=== PATIENT | female | born 1970 | race Caucasian/White ===

== ENCOUNTER 2018-10-30 14:25 | Day surgery (SDC) | payer BC, MEDICAID ==
[2018-10-29 15:06] VITALS: Ht 152.4 cm; Wt 69.0 kg
[~2018-10-30] VITALS: Ht 152.4 cm; Wt 69.0 kg
[2018-10-30] VITALS (18 sets, daily range): BP systolic 114–130; BP diastolic 55–71; PULSE 76–88; RESP 15–25
--- NOTE | 2018-10-30 15:12 | HPN ---
Date/Time of Note Date/Time of Note DATE: 10/30/18 TIME: 15:12 Interval H&P Admission Note Pt. seen H&P reviewed: No system changes FELTON ABRAMS Oct 30, 2018 15:12
--- NOTE | 2018-10-30 15:24 | PREAC ---
Date/Time of Note Date/Time of Note DATE: 10/30/18 TIME: 15:23 Anesthesia Eval and Record Evaluation Time Pre-Procedure Interview DATE: 10/30/18 TIME: 15:23 Age 48 Sex female NPO: 8 hrs Preoperative diagnosis Right index finger mass Planned procedure Excision of mass Past Medical History Past Medical History: Includes Cardio: Dyslipidemia Endo: Diabetes GI: Obesity Surgery & Anesthesia Issues No known issue Meds Anticoagulation: No Beta Loi within 24 hr: No Reason Beta Loi not given: Pt. not on B-Loi Reported Medications Atorvastatin* (Atorvastatin*) 40 Mg Tablet, 40 MG PO QHS, #30 TAB 10/30/18 Metformin* (Glucophage*) 500 Mg Tab, 500 MG PO WITH BREAKFAST DINNE, #30 TAB 10/30/18 Meds reviewed: Yes Allergies Allergies Reviewed: Yes Labs/Studies Labs Reviewed: Reviewed by anesthesiologist test: Negative Pre-procedure Exam Airway: Adequate mouth opening Mallampati: Mallampati II Teeth: Normal Lung: Normal Heart: Normal ASA Physical Status ASA physical status: 2 Emergency: None Planned Anesthetic General/MAC: LMA, MAC Planned Pain Management Parenteral pain med Pre-operative Attestations Prior to commencing anesthesia and surgery, the patient was re-evaluated, there was verification of: *The patient's identity *The results of appropriate recent lab work and preoperative vital signs *The above evaluation not changing prior to induction *Anesthetic plan, risk benefits, alternative and complications discussed with patient/family; questions answered; patient/family understands, accepts and wishes to proceed. NORMA KNIGHT MD Oct 30, 2018 15:24
[2018-10-30] MEDS ORDERED: BUPIVACAINE 0.5% (SDV) 30 ML INJ ONE (15:25)
[2018-10-30] MEDS ORDERED: ATOR40TA68 PO (15:38)
[2018-10-30] MEDS ORDERED: METF-849 PO (15:38)
[2018-10-30] MEDS ORDERED: PROPOFOL 20 ML ONE (15:52)
[2018-10-30] MEDS ORDERED: FENTAnyl 50 MCG/ML VIAL ONE (15:53)
[2018-10-30] MEDS ORDERED: MIDAZOLAM 1 MG/ML 2 ML INJ ONE (15:53)
[2018-10-30] MEDS ORDERED: LIDOCAINE 1% (MPF) 30 ML INJ ONE (16:00)
[2018-10-30] MEDS ORDERED: CEFAZOLIN 1 GM INJ ONE (16:14)
--- NOTE | 2018-10-30 16:23 | OPPN ---
Date/Time of Note Date/Time of Note DATE: 10/30/18 TIME: 16:21 Operative Report Preoperative Diagnosis Right index finger dorsal mass 1.5cm x 1.5cm Postoperative Diagnosis Right index finger dorsal mass 1.5cm x 1.5cm soft tissue defect 1.5 cm Operation/Procedure Performed Right index finger dorsal mass 1.5cm x 1.5cm Right index finger rhomboid rotational flap for coverage of 1.5 cm defect Surgeon see signature line assistant controller none Anesthesia: MAC Estimated blood loss: 0 - 10 ml's Transfusion Required none Specimen right index finger mass, deep, vascular Grafts/Implants none Complications none FELTON ABRAMS Oct 30, 2018 16:23
[2018-10-30] MEDS ORDERED: DIPHENHYDRAMINE 50 MG INJ IV PRN (16:30)
[2018-10-30] MEDS ORDERED: CEFAZOLIN 2 GM/50 ML (PMX) 50 ML IVPB SCH (16:30)
[2018-10-30] MEDS ORDERED: MEPERIDINE 25 MG INJ IV PRN (16:30)
[2018-10-30] MEDS ORDERED: FENTAnyl 50 MCG/ML VIAL IV PRN ×3 (16:30)
[2018-10-30] MEDS ORDERED: EPHEDrine SULFATE 50 MG/5 ML SYG IV PRN (16:30)
[2018-10-30] MEDS ORDERED: METOCLOPRAMIDE 10 MG INJ IV PRN (16:30)
[2018-10-30] MEDS ORDERED: hydrALAzine 20 MG INJ IV PRN (16:30)
[2018-10-30] MEDS ORDERED: ONDANSETRON 4 MG INJ IV PRN (16:30)
[2018-10-30] MEDS ORDERED: MIDAZOLAM 1 MG/ML 2 ML INJ IV PRN (16:30)
[2018-10-30] MEDS ORDERED: LACTATED RINGER'S 1,000 ML IV* SCH (16:30)
[2018-10-30] MEDS ORDERED: OXYCODONE/ACETAMINOPHEN (5/325) TAB PO PRN ×2 (16:30)
[2018-10-30] MEDS ORDERED: LABETALOL HCL 20MG INJ IV PRN (16:30)
--- NOTE | 2018-10-30 17:37 | PAC ---
Date/Time of Note Date/Time of Note DATE: 10/30/18 TIME: 17:35 Post-Anesthesia Notes Post-Anesthesia Note Last documented vital signs Vital Signs Date Temp Pulse Resp B/P (MAP) Pulse Ox O2 O2 Flow FiO2 Time Delivery Rate 10/30/18 98.8 16:29 10/30/18 84 114/61 99 Room Air 16:23 (78) 10/30/18 16 15:34 Activity: WNL Respiratory function: WNL Cardiovascular function: WNL Mental status: Baseline Pain reasonably controlled: Yes Hydration appropriate: Yes Nausea/Vomiting absent: Yes Comments BP: 116/63; HR: 85, RR: 99, PULSE OX: 99, TEMP: 98.8 NORMA KNIGHT MD Oct 30, 2018 17:37
--- NOTE | 2018-10-30 19:20 | OPR ---
DATE OF OPERATION: 10/30/2018 SURGEON: Jose Foreman MD ANESTHESIA: General plus local. PREOPERATIVE DIAGNOSIS: Right index finger dorsal mass measuring 1.5 cm x 1.5 cm. POSTOPERATIVE DIAGNOSES: 1. Right index finger dorsal mass measuring 1.5 cm x 1.5 cm. 2. Soft tissue defect measuring 1.5 cm x 1 cm at the dorsal index finger, DIPJ. PROCEDURES: 1. Excision of the deep mass right dorsal index finger measuring 1.5 cm x 1.5 cm. 2. Rotational rhomboid flap measuring 1.5 cm x 1 cm at the dorsal right index finger for coverage of soft tissue defect. OPERATIVE FINDINGS: Right dorsal index finger mass, vascular in nature, 1.5 cm x 1.5 cm. INDICATION FOR PROCEDURE: A 48-year-old female with longstanding mass at the dorsal right index finger. It continued to grow in size and the patient elected to proceed with surgical intervention, understanding risks and benefits. DESCRIPTION OF PROCEDURE: The patient was seen in the preoperative area and all further questions were answered. Again, she gave informed consent understanding risks and benefits. She was taken to the operative suite, placed in supine position. She was placed under general anesthesia and 2 grams Ancef IV were given. Tourniquet was placed in the right upper extremity and right upper extremity was prepped with ChloraPrep stick and draped in usual sterile fashion. Esmarch bandage was used to exsanguinate the extremity and tourniquet was inflated to 250 mmHg. Attention was first turned to excision of the mass and an ellipse type incision surrounding the index finger mass was utilized with sharp dissection carried down through skin and subcutaneous tissue. The mass was dissected down to the terminal extensor tendon which was protected. The mass was completely excised with a portion of the epidermis and dermis. The mass was sent for specimen. The wound was copiously irrigated and attention was then turned to coverage of the defect site. The defect site measured 1.5 cm x 1 cm and I was unable to primarily close. Decision was made to proceed with a rotational rhomboid flap at the dorsal index finger. A rhomboid flap was fashioned and a 15-blade knife was used to mobilize the flap along with a tenotomy scissor. The flap was advanced into the defect site and was sutured in place using 5-0 nylon suture. The harvest site was also sutured using 5-0 nylon suture. Xeroform was placed over the wound followed by sterile gauze, Webril and Coban dressing. Tourniquet was deflated after a total of 11 minutes. The patient was awakened from anesthesia. She was taken to postoperative suite in stable condition, tolerated procedure well without complication. SPECIMENS: Right dorsal index finger mass. ESTIMATED BLOOD LOSS: 5 mL. COUNTS: Sponge, instrument and needle counts were correct. TOURNIQUET TIME: 11 minutes. CONDITION ON DISCHARGE: Stable. The patient was given a nonrefillable 5-day prescription for pain medication for surgery today. Dictated By: JOSE BECKFORD/CANDIDO Conf#: [id number] DID#: [id number]
== END 2018-10-30 18:05 | disposition home or self-care (01) ==
LOC: SDS 14:25
PROVIDERS: ATTEND Orthopaedic Surgery Hand Surgery
DX: L92.8 Other granulomatous disorders of the skin and subcutaneous tissue (principal); E78.5 Hyperlipidemia, unspecified; E11.9 Type 2 diabetes mellitus without complications; E66.9 Obesity, unspecified; Z68.29 Body mass index [BMI] 29.0-29.9, adult
CPT/HCPCS: 14040; 82962; 84703; 88307; J0690; J2250; J3010; Z7512; Z7610